=== PATIENT | male | born 1960 | race Caucasian/White ===

== ENCOUNTER 2017-05-18 06:00 | Inpatient (IN) | payer OTHER ==
[~2017-05-18] VITALS: Ht 172.7 cm; Wt 70.5 kg
[2017-05-18] MEDS: LACTATED RINGER'S 1000 ML IV PRN (07:00)
[2017-05-18] MEDS ORDERED: REBI44IN SQ (07:16)
--- NOTE | 2017-05-18 07:35 | EKG ---
Date Performed: 05/18/2017 Time Performed: 06:44:03 PTAGE: 57 years EKG: Sinus rhythm LEFT ANTERIOR FASCICULAR BLOCK ABNORMAL ECG NO PREVIOUS TRACING DOCTOR: Maxwell Burnett Interpretating Date/Time 05/18/2017 07:32:52
[2017-05-18] MEDS ORDERED: SODIUM CHLORID 0.9% 500 ML IV PRN (08:00)
[2017-05-18] MEDS ORDERED: METOPROLOL TARTRATE 25 MG TAB PO PRN (08:00)
[2017-05-18] MEDS ORDERED: POVIDONE IODINE 5% (ANTISEPSIS KIT) 4 APPLICATIONS EACH NARE PRN (08:00)
[2017-05-18] MEDS ORDERED: CHLORHEXIDINE GLUCONATE 4% SOLN 120 ML BTL TOPICAL SCH (08:00)
[2017-05-18] MEDS ORDERED: VANCOMYCIN 1 GM/200 ML PREMIX IV SCH (08:00)
[2017-05-18] MEDS ORDERED: INSULIN HUMAN REGULAR 1,000 UNITS/10 ML VIAL SQ PRN (08:00)
[2017-05-18] MEDS ORDERED: CHLORHEXIDINE GLUCONATE 2 % 1 PACK (2 CLOTHS) TOPICAL PRN (08:00)
[2017-05-18] MEDS ORDERED: ACETAMINOPHEN 1000 MG/100 ML 100 ML IV ONE (08:45)
[2017-05-18] MEDS ORDERED: MIDAZOLAM HCL 2 MG/2 ML VIAL ONE (08:46)
[2017-05-18] MEDS ORDERED: KETAMINE HCL 500 MG/10 ML VIAL ONE (08:46)
[2017-05-18] MEDS ORDERED: HYDR-3366 PO (08:47)
[2017-05-18] MEDS ORDERED: WALKER WHEELS/F1 MIS (08:47)
[2017-05-18] MEDS ORDERED: CALCTAB19 PO (08:47)
[2017-05-18] MEDS ORDERED: VITA500012 PO (08:47)
[2017-05-18] MEDS ORDERED: KETAMINE HCL 50 MG/5 ML SYRINGE ONE ×2 (08:55→09:48)
[2017-05-18] MEDS ORDERED: FAMOTIDINE 20 MG/2 ML VIAL ONE (08:57)
[2017-05-18] MEDS ORDERED: ceFAZolin INJ 1,000 MG VIAL ONE (09:19)
[2017-05-18] MEDS ORDERED: SODIUM CHLOR 0.9% 250 ML INJ 250 ML ONE (09:26)
[2017-05-18] MEDS ORDERED: VANCOMYCIN HCL 1000 MG VIAL ONE ×2 (09:26→09:44)
[2017-05-18] MEDS ORDERED: MORPHINE SULFATE 4 MG/ML INJ ONE (09:48)
[2017-05-18] MEDS ORDERED: diphenhydrAMINE HCL 25 MG CAP PO PRN (10:45)
[2017-05-18] MEDS ORDERED: Post-op Orders (for Pharmacy) XX ONE (10:45)
[2017-05-18] MEDS ORDERED: NALOXONE HCL 0.4 MG/ML AMP IV PUSH PRN (10:45)
[2017-05-18] MEDS ORDERED: ONDANSETRON HCL 4 MG/2 ML VIAL IVP PRN (10:45)
[2017-05-18] MEDS ORDERED: MISCELLANEOUS NURSING INFORMATION XX PRN (10:45)
[2017-05-18] MEDS ORDERED: MORPHINE SULFATE 4 MG/ML INJ IV PUSH PRN (10:45)
--- NOTE | 2017-05-18 10:50 | PD.OP ---
cc: Augie Choudhury MD Operative Report Date of Surgery: May 18, 2017 Preoperative Diagnosis: Depressed left lateral tibial plateau fracture Postoperative Diagnosis: Procedure: Open reduction internal fixation left lateral tibial plateau fracture with allograft bone grafting Anesthesia: Gen. Surgeon: Augie Choudhury [facility] Care Phlebotomist(s): BEN Hickman PA-C The surgical procedure was assisted by my physician access services assistant. My P.A. presence was necessary throughout this case for the manipulation and positioning of the surgical extremity. My P.A. was assisting me throughout the duration of this procedure. The skill set of a physician access services assistant was medically necessary to complete this procedure. During the surgical case the surgical services manager was working at the back table and the physician access services assistant was directly assisting me. Operation and Findings: Plan of activity: Nonweightbearing left leg Implants used: Biomet This patient was seen and evaluated preoperatively. Patient sustained an injury resulting a left lateral tibial plateau fracture. Informed consent was obtained preoperatively after detailed discussion of the risks and benefits of surgery. Risk of surgery including bleeding, infection, nonunion, painful hardware, stiffness, loss of motion, arthritis, need for knee replacement, as well as medical complications including blood clots, stroke, heart attack, and were discussed. I also discussed the possibility of using allograft bone graft . Preoperatively the operative site was marked. Patient was brought to the operating room and placed on the operating room table. Intravenous sedation and general endotracheal anesthesia were administered. IV antibiotics were given and a time out procedure was preformed. The operative leg was prepped with alcohol followed by Hibiclens and draped in the usual sterile fashion. Procedure began with a 4-inch curvilinear incision over the anterolateral knee. Subcutaneous tissue was treated with Bovie. Iliotibial band was split in line with fibers. A sub-meniscal arthrotomy was created and the lateral articular surface was visualized. There was significant depression of the articular surface. A window was made in the metaphyseal region and bone tamps used to elevate the articular surface. Articular surface reduced into excellent alignment. K-wires were used for provisional fixation. At this point cancellous bone graft was packed under the articular surface using a bone tamp. Fluoroscopy revealed excellent alignment of fracture. A Biomet proximal tibial plate was selected. The plate was provisionally held with K-wires. 3.5 cortical screws were used compress plate to bone distally, and a periarticular clamp was used to compress the medial and lateral tibial plateau fracture fragments together. Multiple locking screws were now placed proximally. Additional screws were placed in the shaft. K-wires were removed. Final fluoroscopy showed excellent alignment of fracture with well- placed hardware. The incision was thoroughly irrigated. Arthrotomy and iliotibial band closed with #1 Vicryl,. Subcutaneous tissues closed with 3-0 Vicryl and skin was closed with fay. Sterile dressings were applied. The patient was transferred to recovery in stable condition. Augie Choudhury MD May 18, 2017 10:50
[2017-05-18] MEDS ORDERED: DO NOT ADM ANY ANTICOAGULANT DRUGS PRN (11:11)
[2017-05-18] MEDS ORDERED: *morphine SULFATE 4 MG/ML PERIprocedure ONLY ONE ×2 (11:22→11:26)
[2017-05-18] MEDS ORDERED: *MEPERIDINE 25 MG INJ VIAL PERIprocedural Use ONLY ONE (11:25)
[2017-05-18] MEDS ORDERED: HYDROmorphone HCL PF 0.5 MG/0.5 ML SYRINGE ONE (11:42)
[2017-05-18] MEDS ORDERED: PHENYLEPH/NS 1000 MCG/10 ML SYR IV ONE (12:00)
[2017-05-18] MEDS ORDERED: LACTATED RINGER'S 1000 ML INJ 1,000 ML IV ONE (12:00)
[2017-05-18] MEDS ORDERED: ePHEDrine/NS 25 MG/5 ML SYRINGE IV ONE (12:00)
[2017-05-18] MEDS ORDERED: ONDANSETRON HCL 4 MG/2 ML VIAL IV ONE (12:00)
[2017-05-18] MEDS ORDERED: ERGOCALCIFEROL (VIT D2) 50,000 UNIT CAP PO SCH (12:00)
[2017-05-18] MEDS ORDERED: PROPOFOL 200 MG/20 ML AMP IV ONE (12:00)
[2017-05-18] MEDS ORDERED: DEXAMETHASONE SOD PHOS 4 MG/ML VIAL IV ONE (12:00)
[2017-05-18] MEDS ORDERED: LIDOCAINE HCL 1% PF 5 ML SYRINGE OTHER ONE (12:00)
--- NOTE | 2017-05-18 12:09 | RADRPT ---
EXAM DATE/TIME: 05/18/2017 10:27 [facility] COMPARISON: No previous studies available for comparison. INDICATIONS : ORIF left tibial plateau fracture. MEDICAL HISTORY : Unobtainable. SURGICAL HISTORY : Unobtainable. ENCOUNTER: Initial ACUITY: 1 day PAIN SCORE: 10/10 LOCATION: Left knee. FINDINGS: The patient is status post ORIF of left proximal tibial fracture with hardware in good position. No a cute fracture or dislocation is noted. CONCLUSION: Status post ORIF of left proximal tibial fracture with hardware in good position. Juan Siegel MD on May 18, 2017 at 12:06 Board Certified Radiologist. This report was verified electronically.
[2017-05-18 13:50] VITALS: BP 104/71; PULSE 59; RESP 18; TEMP 97.4; O2SAT 96
[2017-05-18] MEDS ORDERED: GENTAMICIN SULFATE 80 MG/2 ML VIAL ONE (14:32)
[2017-05-18] MEDS: ACETAMINOPHEN/HYDROcodone 325 MG/7.5 MG TAB PO PRN ×3 (14:38→21:35)
[2017-05-18] MEDS: CALCIUM/VITAMIN D 250 MG/125 U TAB PO SCH ×2 (14:38→18:37)
[2017-05-18 18:29] VITALS: BP 103/68; PULSE 68; RESP 18; TEMP 97.2; O2SAT 100
[2017-05-18] MEDS: DOCUSATE SODIUM 50 MG/SENNA 8.6 MG TAB PO SCH (19:45)
[2017-05-18] MEDS: VANCOMYCIN INJ 1,000 MG in SODIUM CHLOR 0.9% 250 ML INJ 250 ML IV SCH (21:34)
[2017-05-19 00:06] VITALS: BP 113/70; PULSE 69; RESP 16; TEMP 98.7; O2SAT 97
[2017-05-19] MEDS: LACTATED RINGER'S 1000 ML IV PRN (00:26)
[2017-05-19] MEDS: LACTATED RINGER'S 1000 ML INJ 1,000 ML IV SCH ×2 (00:28→13:00)
[2017-05-19 04:20] VITALS: BP 111/66; PULSE 73; RESP 17; TEMP 98; O2SAT 98
[2017-05-19] MEDS: ACETAMINOPHEN/HYDROcodone 325 MG/7.5 MG TAB PO PRN ×6 (04:50→23:33)
[2017-05-19 07:56] LABS: HEMATOCRIT 33.9 % (39.0-51.0); HEMOGLOBIN 11.7 GM/DL (13.0-17.0)
[2017-05-19 08:00] VITALS: BP 115/72; PULSE 69; RESP 17; TEMP 98; O2SAT 98
--- NOTE | 2017-05-19 08:57 | RADRPT ---
EXAM DATE/TIME: 05/19/2017 08:34 [facility] COMPARISON: No previous studies available for comparison. INDICATIONS : Back pain. MEDICAL HISTORY : None. SURGICAL HISTORY : Left knee. ENCOUNTER: Subsequent ACUITY: 2 days PAIN SCORE: 7/10 LOCATION: Back pain. FINDINGS: Two view examination was performed. There are five non-rib bearing vertebral bodies. The vertebral bodies are in normal alignment without evidence of subluxation or scoliosis. The disc spaces are sugey ntained. The pedicles are intact. Bony mineralization is normal. No fracture is identified. CONCLUSION: Negative for acute process. Jaziel Gill MD FACR on May 19, 2017 at 8:53 Board Certified Radiologist. This report was verified electronically.
[2017-05-19] MEDS: DOCUSATE SODIUM 50 MG/SENNA 8.6 MG TAB PO SCH ×2 (09:22→20:19)
[2017-05-19] MEDS: CHOLECALCIFEROL (VIT D3) 1000 UNIT TAB PO SCH (09:22)
[2017-05-19] MEDS: CALCIUM/VITAMIN D 250 MG/125 U TAB PO SCH ×3 (09:22→16:57)
[2017-05-19] MEDS: VANCOMYCIN INJ 1,000 MG in SODIUM CHLOR 0.9% 250 ML INJ 250 ML IV SCH ×2 (09:23→21:34)
--- NOTE | 2017-05-19 09:50 | PD.ORT.PN ---
Subjective Subjective Remarks Pain controlled status post tibial plateau fracture POD 1 Objective Vitals Vital Signs Date Time Temp Pulse Resp B/P (MAP) Pulse Ox O2 Delivery O2 Flow Rate FiO2 05/19/17 08:00 98.0 69 17 115/72 (86) 98 05/19/17 04:20 98.0 73 17 111/66 (81) 98 05/19/17 00:06 98.7 69 16 113/70 (84) 97 05/18/17 18:29 97.2 68 18 103/68 (80) 100 05/18/17 14:15 96 Room Air 05/18/17 13:50 97.4 59 18 104/71 (82) 96 05/18/17 13:15 74 18 107/63 (78) 100 Room Air 05/18/17 12:00 73 18 97/65 (76) 100 Room Air 05/18/17 11:45 74 18 96/63 (74) 100 Room Air 05/18/17 11:30 76 18 113/69 (84) 97 Room Air 05/18/17 11:15 66 18 105/69 (81) 100 Nasal Cannula 2 05/18/17 11:12 98.3 69 18 97/64 (75) 10 Nasal Cannula 2 I/O 05/18/17 05/18/17 05/18/17 05/19/17 05/19/17 05/19/17 07:00 15:00 23:00 07:00 15:00 23:00 Intake Total 1000 ml 250 ml Output Total 150 ml 1040 ml Balance 850 ml -1040 ml 250 ml Intake IV Total 250 ml Other 1000 ml Output Urine Total 1040 ml Estimated Blood Loss 150 ml # Voids 4 Result Diagram: 05/19/17 0656 Imaging Last 72 hours Impressions Lumbar Spine X-Ray 05/19/17 0000 Signed Impressions: Service Date/Time: Friday, May 19, 2017 08:34 - CONCLUSION: Negative for acute process. Jaziel Gill MD FACR Knee X-Ray 05/18/17 0000 Signed Impressions: Service Date/Time: Thursday, May 18, 2017 10:27 - CONCLUSION: Status post ORIF of left proximal tibial fracture with hardware in good position. Juan Siegel MD Last 24 hours Impressions Lumbar Spine X-Ray 05/19/17 0000 Signed Impressions: Service Date/Time: Friday, May 19, 2017 08:34 - CONCLUSION: Negative for acute process. Jaziel Gill MD FACR Objective Remarks Left lower extremity: No pain with hip range of motion. Clean dry dressings intact. Knee immobilizer in place. Distally he has intact sensation with good capillary refills. He has active dorsiflexion and plantar flexion of the foot Assessment & Plan Assessment and Plan Left tibia plateau fracture ORIF POD 1 Nonweightbearing left lower extremity Knee immobilizer on at all times Passive range of motion of knee with physical therapy Low back pain X-rays are negative for any acute processes of fracture or degenerative changes Lovenox Depending on pain control he may be discharged today or tomorrow. We will do a dressing change prior to his discharge. Consents from tree Follow-up with Dr. Choudhury or PA in 2 weeks Noah Jara Jr. May 19, 2017 09:50
--- NOTE | 2017-05-19 09:51 | HHI.FF ---
Face to Face Verification Diagnosis: (1) Tibial plateau fracture, left Physical Therapy Gait training, Safety evaluation Knee: Knee fracture, Protocol: Left, Non weight bearing Left LE Weight Bearing: Non WB, No Strengthening, No Quad Sets Left LE Range of Motion: Passive ROM S/P Spinal Fusion: Gait training with walker Nursing Dressing Changes: Daily dressing change, Felice wrap, 4x4s, Xeroform I have seen patient Isaak Ferrer, SWETHA on 05/19/17. My clinical findings support the need for the requested home health care services because: Limited ability to care for self I certify that my clinical findings support that this patient is homebound because: Unsteady gait/balance Noah Jara Jr. SIMI May 19, 2017 09:51
[2017-05-19] MEDS: ENOXAPARIN SODIUM 30 MG/0.3 ML SYRINGE SQ SCH (10:34)
[2017-05-19 12:00] VITALS: BP 115/73; PULSE 66; RESP 18; TEMP 98.3; O2SAT 100
[2017-05-19] MEDS ORDERED: WHEEMIS3 (13:32)
[2017-05-19 16:00] VITALS: BP 111/76; PULSE 63; RESP 18; TEMP 98.1; O2SAT 99
[2017-05-19 20:00] VITALS: BP 147/74; PULSE 63; RESP 17; TEMP 97.9; O2SAT 99
[2017-05-20] VITALS: BP 123/75; PULSE 50; RESP 18; TEMP 98; O2SAT 96
[2017-05-20] MEDS: LACTATED RINGER'S 1000 ML INJ 1,000 ML IV SCH ×2 (01:30→14:00)
[2017-05-20] MEDS: ACETAMINOPHEN/HYDROcodone 325 MG/7.5 MG TAB PO PRN ×5 (03:01→20:27)
[2017-05-20 04:00] VITALS: BP 107/70; PULSE 61; RESP 20; TEMP 97.7; O2SAT 97
[2017-05-20 08:00] VITALS: BP 118/83; PULSE 63; RESP 18; TEMP 97.6; O2SAT 99
[2017-05-20] MEDS: CALCIUM/VITAMIN D 250 MG/125 U TAB PO SCH ×3 (09:10→18:00)
[2017-05-20] MEDS: CHOLECALCIFEROL (VIT D3) 1000 UNIT TAB PO SCH (09:10)
[2017-05-20] MEDS: DOCUSATE SODIUM 50 MG/SENNA 8.6 MG TAB PO SCH ×2 (09:10→20:27)
[2017-05-20] MEDS: ENOXAPARIN SODIUM 30 MG/0.3 ML SYRINGE SQ SCH (10:36)
[2017-05-20 12:00] VITALS: BP 104/71; PULSE 63; RESP 18; TEMP 97.5; O2SAT 97
--- NOTE | 2017-05-20 13:17 | PD.ORT.PN ---
Subjective Subjective Remarks POD 2 s/p ORIF left tibial plateau doing well. states pain better controlle.d has not been out of bed yet Objective Vitals Vital Signs Date Time Temp Pulse Resp B/P (MAP) Pulse Ox O2 Delivery O2 Flow Rate FiO2 05/20/17 08:00 97.6 63 18 118/83 (95) 99 05/20/17 04:00 97.7 61 20 107/70 (82) 97 05/20/17 00:00 98.0 50 18 123/75 (91) 96 05/19/17 20:00 97.9 63 17 147/74 (98) 99 05/19/17 16:00 98.1 63 18 111/76 (88) 99 I/O 05/19/17 05/19/17 05/19/17 05/20/17 05/20/17 05/20/17 07:00 15:00 23:00 07:00 15:00 23:00 Intake Total 250 ml 960 ml Balance 250 ml 960 ml Intake Oral 960 ml IV Total 250 ml # Voids 4 6 5 # Bowel Movements 0 Result Diagram: 05/19/17 0656 Imaging Last 72 hours Impressions Lumbar Spine X-Ray 05/19/17 0000 Signed Impressions: Service Date/Time: Friday, May 19, 2017 08:34 - CONCLUSION: Negative for acute process. Jaziel Gill MD FACR Knee X-Ray 05/18/17 0000 Signed Impressions: Service Date/Time: Thursday, May 18, 2017 10:27 - CONCLUSION: Status post ORIF of left proximal tibial fracture with hardware in good position. Juan Siegel MD Last 24 hours Impressions Lumbar Spine X-Ray 05/19/17 0000 Signed Impressions: Service Date/Time: Friday, May 19, 2017 08:34 - CONCLUSION: Negative for acute process. Jaziel Gill MD FACR Objective Remarks Left lower extremity: No pain with hip range of motion. Clean dry dressings intact. Knee immobilizer in place. Distally he has intact sensation with good capillary refills. He has active dorsiflexion and plantar flexion of the foot Assessment & Plan Assessment and Plan Left tibia plateau fracture ORIF POD 2 Nonweightbearing left lower extremity Knee immobilizer on at all times Passive range of motion of knee with physical therapy Low back pain X-rays are negative for any acute processes of fracture or degenerative changes DVT prophylaxis plan for dc home today with C will order podus boot today for left ankle contracture pt to work on stretching of ankle and calf Follow-up with Dr. Choudhury or PA in 2 weeks Luke Brito/First Kristel BELCHER May 20, 2017 13:17
[2017-05-20 16:00] VITALS: BP 120/71; PULSE 62; RESP 18; TEMP 98; O2SAT 98
[2017-05-20 20:00] VITALS: BP 121/81; PULSE 67; RESP 18; TEMP 98.6; O2SAT 97
[2017-05-21] VITALS: BP 103/74; PULSE 61; RESP 18; TEMP 98.4; O2SAT 98
[2017-05-21] MEDS: ACETAMINOPHEN/HYDROcodone 325 MG/7.5 MG TAB PO PRN ×5 (00:17→20:53)
[2017-05-21] MEDS: LACTATED RINGER'S 1000 ML INJ 1,000 ML IV SCH ×2 (02:03→15:00)
--- NOTE | 2017-05-21 06:49 | PD.ORT.PN ---
Subjective Subjective Remarks Pain controlled Objective Vitals Vital Signs Date Time Temp Pulse Resp B/P (MAP) Pulse Ox O2 Delivery O2 Flow Rate FiO2 05/21/17 05:38 18 05/21/17 00:00 98.4 61 18 103/74 (84) 98 05/20/17 22:10 Room Air 05/20/17 20:00 98.6 67 18 121/81 (94) 97 05/20/17 16:00 98.0 62 18 120/71 (87) 98 05/20/17 12:00 97.5 63 18 104/71 (82) 97 05/20/17 08:00 97.6 63 18 118/83 (95) 99 I/O 05/20/17 05/20/17 05/20/17 05/21/17 05/21/17 05/21/17 07:00 15:00 23:00 07:00 15:00 23:00 Intake Total 960 ml 240 ml Output Total 1600 ml Balance 960 ml -1360 ml Intake Oral 960 ml 240 ml Output Urine Total 1600 ml # Voids 5 5 # Bowel Movements 0 0 Result Diagram: 05/19/17 0656 Imaging Last 72 hours Impressions Lumbar Spine X-Ray 05/19/17 0000 Signed Impressions: Service Date/Time: Friday, May 19, 2017 08:34 - CONCLUSION: Negative for acute process. Jaziel Gill MD FACR Knee X-Ray 05/18/17 0000 Signed Impressions: Service Date/Time: Thursday, May 18, 2017 10:27 - CONCLUSION: Status post ORIF of left proximal tibial fracture with hardware in good position. Juan Siegel MD Last 24 hours Impressions Lumbar Spine X-Ray 05/19/17 0000 Signed Impressions: Service Date/Time: Friday, May 19, 2017 08:34 - CONCLUSION: Negative for acute process. Jaziel Gill MD FACR Objective Remarks Left lower extremity: No pain with hip range of motion. Clean dry dressings intact. Knee immobilizer in place. Distally he has intact sensation with good capillary refills. He has active dorsiflexion and plantar flexion of the foot Assessment & Plan Assessment and Plan Left tibia plateau fracture ORIF POD 3 Nonweightbearing left lower extremity Knee immobilizer on at all times Passive range of motion of knee with physical therapy Low back pain X-rays are negative for any acute processes of fracture or degenerative changes DVT prophylaxis plan for dc home today with [facility] Multi-Podus boot for foot contracture pt to work on stretching of ankle and calf Follow-up with Dr. Choudhury or [place] in 2 weeks Noah Jara Jr. May 21, 2017 06:49
[2017-05-21 08:00] VITALS: BP 111/58; PULSE 64; RESP 18; TEMP 98.2; O2SAT 98
[2017-05-21] MEDS: CHOLECALCIFEROL (VIT D3) 1000 UNIT TAB PO SCH (09:00)
[2017-05-21] MEDS: CALCIUM/VITAMIN D 250 MG/125 U TAB PO SCH ×3 (09:25→17:44)
[2017-05-21] MEDS: DOCUSATE SODIUM 50 MG/SENNA 8.6 MG TAB PO SCH ×2 (09:25→20:53)
[2017-05-21] MEDS: ENOXAPARIN SODIUM 30 MG/0.3 ML SYRINGE SQ SCH (10:50)
[2017-05-21 12:00] VITALS: BP 108/73; PULSE 70; RESP 18; TEMP 98.4; O2SAT 97
[2017-05-21 16:00] VITALS: BP 114/75; PULSE 71; RESP 18; TEMP 98.5; O2SAT 98
[2017-05-21 20:00] VITALS: BP 113/85; PULSE 78; RESP 18; TEMP 98.7; O2SAT 98
[2017-05-22] VITALS: BP 132/79; PULSE 66; RESP 18; TEMP 98.2; O2SAT 98
[2017-05-22] MEDS: LACTATED RINGER'S 1000 ML INJ 1,000 ML IV SCH (01:45)
[2017-05-22] MEDS: ACETAMINOPHEN/HYDROcodone 325 MG/7.5 MG TAB PO PRN ×4 (02:33→18:01)
[2017-05-22] MEDS ORDERED: BISACODYL 10 MG SUPP RECTAL PRN (04:45)
[2017-05-22] MEDS: DOCUSATE SODIUM 50 MG/SENNA 8.6 MG TAB PO SCH ×3 (05:50→12:53)
[2017-05-22] MEDS: MAGNESIUM HYDROXIDE SUSP 30 ML CUP PO SCH ×2 (05:50→12:52)
--- NOTE | 2017-05-22 07:38 | PD.ORT.PN ---
Subjective Subjective Remarks Patient resting comfortable he. States he is just awaiting a wheelchair to be able to go home. Objective Vitals Vital Signs Date Time Temp Pulse Resp B/P (MAP) Pulse Ox O2 Delivery O2 Flow Rate FiO2 05/22/17 06:27 18 05/22/17 00:00 98.2 66 18 132/79 (96) 98 05/21/17 22:42 Room Air 05/21/17 20:00 98.7 78 18 113/85 (94) 98 05/21/17 16:00 98.5 71 18 114/75 (88) 98 05/21/17 12:00 98.4 70 18 108/73 (85) 97 05/21/17 08:00 98.2 64 18 111/58 (75) 98 I/O 05/21/17 05/21/17 05/21/17 05/22/17 05/22/17 05/22/17 07:00 15:00 23:00 07:00 15:00 23:00 Intake Total 240 ml 800 ml 480 ml Output Total 1600 ml 800 ml Balance -1360 ml 800 ml -320 ml Intake Oral 240 ml 800 ml 480 ml Output Urine Total 1600 ml 800 ml # Voids 5 # Bowel Movements 0 0 0 Result Diagram: 05/19/17 0656 Imaging Last 72 hours Impressions Lumbar Spine X-Ray 05/19/17 0000 Signed Impressions: Service Date/Time: Friday, May 19, 2017 08:34 - CONCLUSION: Negative for acute process. Jaziel Gill MD FACR Knee X-Ray 05/18/17 0000 Signed Impressions: Service Date/Time: Thursday, May 18, 2017 10:27 - CONCLUSION: Status post ORIF of left proximal tibial fracture with hardware in good position. Juan Siegel MD Last 24 hours Impressions Lumbar Spine X-Ray 05/19/17 0000 Signed Impressions: Service Date/Time: Friday, May 19, 2017 08:34 - CONCLUSION: Negative for acute process. Jaziel Gill MD FACR Objective Remarks Awake, alert, no acute distress Left lower extremity: No pain with hip range of motion. Clean dry dressings intact. Knee immobilizer in place. Distally he has intact sensation with good capillary refills. He has active dorsiflexion and plantar flexion of the foot Assessment & Plan Assessment and Plan Left tibia plateau fracture ORIF POD 4 Nonweightbearing left lower extremity Knee immobilizer on at all times Passive range of motion of knee with physical therapy Low back pain X-rays are negative for any acute processes of fracture or degenerative changes DVT prophylaxis plan for dc home today with [facility], pending wheelchair Multi-Podus boot for foot contracture pt to work on stretching of ankle and calf Follow-up with Dr. Choudhury or [place] in 2 weeks Yazmin Garces MD May 22, 2017 07:38
[2017-05-22 07:42] VITALS: BP 117/80; PULSE 66; RESP 18; TEMP 98; O2SAT 94
[2017-05-22] MEDS: CHOLECALCIFEROL (VIT D3) 1000 UNIT TAB PO SCH (08:53)
[2017-05-22] MEDS: CALCIUM/VITAMIN D 250 MG/125 U TAB PO SCH ×3 (08:53→17:59)
[2017-05-22 12:00] VITALS: BP 108/79; PULSE 83; RESP 18; TEMP 98.4; O2SAT 97
[2017-05-22] MEDS: ENOXAPARIN SODIUM 30 MG/0.3 ML SYRINGE SQ SCH (12:57)
[2017-05-22 16:00] VITALS: BP 104/77; PULSE 84; RESP 18; TEMP 98.4; O2SAT 97
== END 2017-05-22 19:51 | disposition home or self-care (01) | DRG 494 ==
LOC: HSDC 06:00 → N06B 13:47 → OBSVTOIN 05-19 14:45
PROVIDERS: ADMIT Orthopaedic Surgery Orthopaedic Trauma; ATTEND Orthopaedic Surgery Orthopaedic Trauma
PROC: 0QUH0KZ Supplement Left Tibia with Nonautologous Tissue Substitute, Open Approach (ICD-10-PCS; 2017-05-18)
PROC: 0QSH04Z Reposition Left Tibia with Internal Fixation Device, Open Approach (ICD-10-PCS; principal; 2017-05-18 09:07)
DX: S82.142A Displaced bicondylar fracture of left tibia, initial encounter for closed fracture (principal); G35 Multiple sclerosis; F17.210 Nicotine dependence, cigarettes, uncomplicated; M54.5 Low back pain; M10.9 Gout, unspecified; M06.9 Rheumatoid arthritis, unspecified
CPT/HCPCS: 72100; 73560; 76000; 85014; 85018; 93005; 94150; C1713; G8987-GP; G8988-GP; J0131; J0690; J1100; J1170; J1580; J1650; J2175; J2250; J2270; J2370; J2405; J3010; J3370; J7050; J7120; L1830